=== PATIENT | female | born 1970 | race African-American/Black ===

== ENCOUNTER 2016-12-29 12:52 | Emergency (ER) | payer MEDICAID ==
[~2016-12-29] VITALS: Ht 170.2 cm; Wt 56.7 kg
[2016-12-29 14:41] VITALS: BP 117/55
[2016-12-29] MEDS ORDERED: IBUPROFEN 800 MG TABLET. PO ONE (14:45)
--- NOTE | 2016-12-29 15:02 | PHYS DOC ---
Past Medical History Past Medical History: No Pertinent History Past Surgical History: No Surgical History Alcohol Use: Rarely Drug Use: None Adult General Chief Complaint Chief Complaint: FEVER [facility] HPI Patient is a 46 year old female who presents with fever, dental pain, runny nose, and cough that all started yesterday. No interventions prior to arrival. Denies shortness or air, sore throat, difficulty swallowing. Review of Systems Review of Systems Constitutional: Fever today Eyes: Denies change in visual acuity, redness, or eye pain HENT: Runny nose and dental pain Respiratory: Denies shortness of breath. Cough one day Cardiovascular: No additional information not addressed in HPI GI: Denies abdominal pain, nausea, vomiting, bloody stools or diarrhea : Denies dysuria or hematuria Musculoskeletal: Denies back pain or joint pain Integument: Denies rash or skin lesions Neurologic: Denies headache, focal weakness or sensory changes Endocrine: Denies polyuria or polydipsia Current Medications Current Medications Current Medications Medications (Trade) Dose Ordered Sig/Kleber Start Time Stop Time Status Last Admin Dose Admin Ibuprofen (Motrin) 800 mg 1X ONCE 12/29/16 14:45 12/29/16 14:46 DC 12/29/16 14:47 800 MG Allergies Allergies Allergies Coded Allergies Type Severity Reaction Last Updated Verified No Known Drug Allergies 12/29/16 No Physical Exam Physical Exam Constitutional: Well developed, well nourished, no acute distress, non-toxic appearance. HENT: Normocephalic, atraumatic, bilateral external ears normal, oropharynx moist, no oral exudates. Multiple dental caries, broken teeth, gum erosion and erythema. No visible abscess or trismus present. Clear drainage bilateral nares. Eyes: PERRLA, EOMI, conjunctiva normal, no discharge. Neck: Normal range of motion, no tenderness, supple, no stridor. No cervical adenopathy Cardiovascular:Heart rate regular rhythm, no murmur Lungs & Thorax: Bilateral breath sounds clear to auscultation Abdomen: Bowel sounds normal, soft, no tenderness, no masses, no pulsatile masses. Skin: Warm, dry, no erythema, no rash. Back: No tenderness, no CVA tenderness. Extremities: No tenderness, no cyanosis, no clubbing, ROM intact, no edema. Neurologic: Alert and oriented X 3, normal motor function, normal sensory function, no focal deficits noted. Psychologic: Affect normal, judgement normal, mood normal. Current Patient Data Vital Signs Vital Signs Date Time Temp Pulse Resp B/P Pulse Ox O2 Delivery O2 Flow Rate FiO2 12/29/16 14:41 103.0 73 18 97 Room Air 103.0 Lab Values Laboratory Tests Test 12/29/16 15:00 Influenza Type A Antigen Positive (NEGATIVE) A Influenza Type B Antigen Negative (NEGATIVE) EKG EKG [] Radiology/Procedures Radiology/Procedures [] Impressions: 1. influenza A 2. Dental infection Course & Med Decision Making Course & Med Decision Making Pertinent Labs and Imaging studies reviewed. (See chart for details) Patient declined Tamiflu Dragon Disclaimer Dragon Disclaimer This electronic medical record was generated, in whole or in part, using a voice recognition dictation system. Departure Departure Impression: Primary Impression: Influenza A Additional Impression: Infected dental caries Disposition: HOME, SELF-CARE Condition: STABLE Referrals: NO PCP (PCP) Patient Instructions: Dental Caries, Influenza, Adult Additional Instructions: Take medication as prescribed. Follow up with one of dentists and doctors next week. Return if any problems or concerns. Scripts Ondansetron (Zofran Odt)4 Mg Tab.rapdis1 Tab SL Q8HRS PRN NAUSEA/VOMITING #3 TAB Prov:MANDEEP BATEMAN APRN 12/29/16 Promethazine HCl (Phenergan)12.5 Mg Supp.rect12.5 Mg RC Q8HRS PRN NAUSEA/ VOMITING #3 SUPP.RECT Prov:MANDEEP BATEMAN APRN 12/29/16 Amoxicillin 500 Mg Capsule1 Cap PO TID 10 Days Prov:MANDEEP BATEMAN APRN 12/29/16 Problem Qualifiers MANDEEP BATEMAN APRN Dec 29, 2016 15:01
[2016-12-29 15:43] LABS: OBC FLU VALID
[2016-12-29] MEDS ORDERED: PROM12.553 RC (15:50)
[2016-12-29] MEDS ORDERED: AMOX500C PO (15:50)
[2016-12-29] MEDS ORDERED: ONDA4TAB10 SL (15:50)
== END 2016-12-29 15:55 | disposition home or self-care (01) ==
LOC: ER 12:52
DX: J09.X2 Influenza due to identified novel influenza A virus with other respiratory manifestations (principal); K02.9 Dental caries, unspecified; K04.7 Periapical abscess without sinus
CPT/HCPCS: 87804; 99284